=== PATIENT | male | born 1955 | race Caucasian/White ===

== ENCOUNTER 2018-12-13 10:02 | Emergency (ER) | payer BC, OTHER ==
[~2018-12-13] VITALS: Wt 70.1 kg
[~2018-12-13 10:02] MED LIST: ACET500C5 PO; AMOX1TAB67 PO; HYDR-3498 PO; IBUP-1542 PO; METF-849 PO
[2018-12-13] MEDS ORDERED: KETOROLAC 30 MG INJ IM STA (12:36)
[2018-12-13 13:38] VITALS: BP 116/75; PULSE 71; RESP 16
== END 2018-12-13 13:39 | disposition home or self-care (01) ==
LOC: FTE 10:02
DX: R51 Headache (principal); E11.9 Type 2 diabetes mellitus without complications; Z79.84 Long term (current) use of oral hypoglycemic drugs
CPT/HCPCS: 96372; 99284; J1885